=== PATIENT | female | born 1965 | race Caucasian/White ===

== ENCOUNTER 2019-01-04 21:43 | Emergency (ER) | payer BC, SELFPAY ==
[2019-01-04 21:52] VITALS: BP 123/78; PULSE 72; RESP 16; TEMP 36.6; O2SAT 97; BMI 28.3
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
--- NOTE | 2019-01-05 00:29 | ED.DEP ---
ED Disposition - Plan for ED Patient: Instructions: ED Head Injury Closed, ED Laceration Facial Sutr Tape, ED Contusion Lower Ext, ED Contusion Upper Ext Referrals: Remberto Maldonado MD [Primary Care Provider] -
[2019-01-05 00:44] VITALS: BP 113/78; PULSE 81; RESP 16; O2SAT 97
== END 2019-01-05 00:44 | disposition home or self-care (01) ==
PROVIDERS: Emergency Provider Emergency Medicine; Family Provider Family Medicine; PCP Family Medicine
DX: S01.81XA Laceration without foreign body of other part of head, initial encounter (principal); S50.02XA Contusion of left elbow, initial encounter; S80.02XA Contusion of left knee, initial encounter; S60.519A Abrasion of unspecified hand, initial encounter; V19.3XXA Pedal cyclist (driver) (passenger) injured in unspecified nontraffic accident, initial encounter; Y93.55 Activity, bike riding; Y92.9 Unspecified place or not applicable; Y99.9 Unspecified external cause status
CPT/HCPCS: 12011; 70450; 72125; 73080; 73564; 99285